=== PATIENT | female | born 1990 | race Caucasian/White ===

== ENCOUNTER 2020-06-18 11:36 | Emergency (ER) | payer OTHER ==
[2020-06-18] MEDS ORDERED: METOCLOPRAMIDE HCL INJ/PF 10 MG/2 ML SDV IV ONE (11:47)
[2020-06-18] MEDS ORDERED: DIPHENHYDRAMINE HCL 50 MG/ML VIAL IV ONE (11:48)
--- NOTE | 2020-06-18 11:49 | ER Document Report ---
ED Medical Screen (RME) - General Chief Complaint: Headache >24 hrs old Stated Complaint: HEADACHE Time Seen by Provider: 06/18/20 11:44 Notes: HPI: 30-year-old female presenting for left posterior headache progressive over 5 days not thunderclap in onset. No vision change no nausea no vomiting no fever. Did have recent illness upper respiratory type several weeks ago had a headache with that which resolved after treatment for bronchitis. Patient states she has been taking [id number] Tylenol and Advil without resolution of the headache. Patient does not have a history of chronic migraines. Patient feels like the discomfort from this headache is the worst that she has had with a headache. PHYSICAL EXAMINATION: No photophobia. Alert and oriented x3 answering all questions appropriately gait is normal. Strength and movement equal upper and lower extremities. No facial droop. No slurred speech. I have greeted and performed a rapid initial assessment of this patient. A comprehensive ED assessment and evaluation of the patient, analysis of test results and completion of medical decision making process will be conducted by an additional ED providers. Please note that clinical decision making for this patient was made during the 2019 pandemic of novel coronavirus which caused a significant strain on the healthcare system including at this particular facility. Criteria for admission discharge and level of care decisions as well as treatment decisions have necessarily changed - Related Data Allergies/Adverse Reactions: No Known Allergies Allergy (Verified 06/18/20 11:44) Past Medical History - Social History Frequency of alcohol use: None Drug Abuse: None Physical Exam - Vital signs Vitals: Temp Pulse Resp BP Pulse Ox 98.4 F 64 16 103/60 100 06/18/20 11:42 06/18/20 11:42 06/18/20 11:42 06/18/20 11:42 06/18/20 11:42 Course - Vital Signs Vital signs: Temp Pulse Resp BP Pulse Ox 98.4 F 64 16 103/60 100 06/18/20 11:42 06/18/20 11:42 06/18/20 11:42 06/18/20 11:42 06/18/20 11:42
--- NOTE | 2020-06-18 12:31 | ER Document Report ---
Entered by MANJU MORALES SCRIBE 06/18/20 1202 Acting as scribe for:SREE LOREDO MD ED Headache - General Chief Complaint: Headache >24 hrs old Stated Complaint: HEADACHE Time Seen by Provider: 06/18/20 11:44 Mode of Arrival: Ambulatory Information source: Patient Notes: This 30 year old female patient presents to the ED today with complaints of a posterior headache for the past x5 days. Patient reports associated neck pain and states that the pain is constant and worse when she lays down to go to bed or moves her neck. She has been taking Tylenol, Advil, and Ibuprofen without resolve. She states that she has never been diagnosed with migraines. She ment ions that she did have a headache a few weeks ago that resolved after she was treated for bronchitis. She tested negative for COVID at that time. Denies fever, nausea, vomiting, dizziness, vision changes, problems with equilibrium or balance, or head injury. - Related Data Allergies/Adverse Reactions: No Known Allergies Allergy (Verified 06/18/20 11:44) Past Medical History - General Information source: Patient - Social History Smoking Status: Never Smoker Cigarette use (# per day): No Chew tobacco use (# tins/day): No Smoking Education Provided: No Frequency of alcohol use: None Drug Abuse: None Family History: Reviewed & Not Pertinent Pulmonary Medical History: Reports: Hx Asthma, Hx Bronchitis Past Surgical History: Reports: None Review of Systems - Review of Systems Constitutional: See HPI, Recent illness. denies: Fever EENT: See HPI. denies: Blurred vision, Double vision Cardiovascular: See HPI. denies: Dizziness Respiratory: No symptoms reported Gastrointestinal: See HPI. denies: Nausea, Vomiting Genitourinary: No symptoms reported Female Genitourinary: No symptoms reported Musculoskeletal: See HPI, Neck pain Skin: No symptoms reported Hematologic/Lymphatic: No symptoms reported Neurological/Psychological: See HPI, Headaches -: Yes All other systems reviewed and negative Physical Exam - Vital signs Vitals: Temp Pulse Resp BP Pulse Ox 98.4 F 64 16 103/60 100 06/18/20 11:42 06/18/20 11:42 06/18/20 11:42 06/18/20 11:42 06/18/20 11:42 Interpretation: Normal - General General appearance: Alert In distress: None - HEENT Head: Normocephalic, Atraumatic Eyes: Normal Extraocular movements intact: Yes Pupils: PERRL Neck: Other - Tenderness to palpation of the bilateral cervical strap muscles at the tendon attachment of the occiput - Respiratory Respiratory status: No respiratory distress Chest status: Nontender Breath sounds: Normal Chest palpation: Normal - Cardiovascular Rhythm: Regular Heart sounds: Normal auscultation Murmur: No - Abdominal Inspection: Normal Distension: No distension Bowel sounds: Normal Tenderness: Nontender - Abdomen soft Organomegaly: No organomegaly - Back Back: Normal, Nontender - Extremities General upper extremity: Normal inspection General lower extremity: Normal inspection. No: Edema - Neurological Neuro grossly intact: Yes Orientation: AAOx4 Badger Coma Scale Eye Opening: Spontaneous Isael Coma Scale Verbal: Oriented Siael Coma Scale Motor: Obeys Commands Isael Coma Scale Total: 15 - Psychological Associated symptoms: Normal affect, Normal mood - Skin Skin Temperature: Warm Skin Moisture: Dry Skin Color: Normal Course - Re-evaluation Re-evalutation: 06/18/20 13:30 Patient resting comfortably at this time. Discussed with patient her lab results CT scan of her head results and reported that everything came back within normal range. Discussed with patient that most likely her headaches are due to stress inasmuch as he has palpable point tenderness at both insertions of the tendon of the cervical strap muscles. Patient does not have any signs of meningitis. - Vital Signs Vital signs: Temp Pulse Resp BP Pulse Ox 98.4 F 64 16 103/60 100 06/18/20 11:42 06/18/20 11:42 06/18/20 11:42 06/18/20 11:42 06/18/20 11:42 06/18/20 13:30 Vital signs stable - Laboratory Results Result Diagrams: 06/18/20 11:25 06/18/20 11:25 Laboratory Results Interpreted: 06/18/20 11:25 Sodium 136.4 L Anion Gap 3 L Laboratory results show no acute or critical findings Critical Laboratory Results Reviewed: No Critical Results - Radiology Results Radiology Results Interpreted: 06/18/20 13:31 Radiology results show no evidence for any acute findings on brain CT. Head CT 06/18/20 11:46 IMPRESSION: NO ACUTE INTRACRANIAL IMAGING FINDINGS. EVIDENCE OF ACUTE STROKE: NO. Critical Radiology Results Reviewed: No Critical Results Discharge - Discharge Clinical Impression: Tension headache Condition: Stable Disposition: HOME, SELF-CARE Additional Instructions: Headache The physician does not feel that the headache you are experiencing has a serious underlying cause. Most headaches are due to emotional stress, with resultant muscle tension (tension headache). Occasionally, headaches are secondary to changes in the blood vessels of the scalp (vascular headache and migraine headache). Sometimes, a headache is the first symptom of another developing illness, such as a viral infection. You have no evidence of stroke, bleeding, meningitis, or other serious cause of your headache. The treatment of headaches varies with the severity and cause of the pain. Not all headaches need pain shots. In fact, there is evidence that using narcotics for headaches may make them worse in the long run. The physician will determine the therapy that's in your best interest. If you develop a fever, if the headache is different from any you've previously experienced, or if the headache progressively worsens, then call your physician at once or go to the emergency room. Prescriptions: Butalb/Acetaminophen/Caffeine [Fioricet (50-325-40 mg) Tablet] 1 tab PO Q4H #20 tab Lorazepam 0.5 mg PO BID PRN 3 Days #6 tablet PRN Reason: muscle neck tension I personally performed the services described in the documentation, reviewed and edited the documentation which was dictated to the scribe in my presence, and it accurately records my words and actions.
[2020-06-18 12:48] LABS: ABSOLUTE EOSINOPHILS # (AUTO) 0.1 10^3/uL (0.0-0.6); ABSOLUTE LYMPHOCYTES (AUTO) 1.8 10^3/uL (0.5-4.7); ABSOLUTE MONOCYTES (AUTO) 0.4 10^3/uL (0.1-1.4); ABSOLUTE NEUT (AUTO) 4.1 10^3/uL (1.7-8.2); BASOPHILS % (AUTO) 0.6 % (0-2); EOSINOPHILS % (AUTO) 0.9 % (0-6); HEMATOCRIT 38.2 % (36.0-47.0); HEMOGLOBIN 12.8 g/dL (12.0-15.5); LYMPHOCYTES % (AUTO) 27.5 % (13-45); MEAN CORPUSCULAR HEMOGLOBIN 28.6 pg (27.0-33.4); MEAN CORPUSCULAR HGB CONC 33.4 g/dL (32.0-36.0); MEAN CORPUSCULAR VOLUME 86 fl (80-97); MONOCYTES % (AUTO) 6.5 % (3-13); PLATELET COUNT 247 10^3/uL (150-450); RED BLOOD COUNT 4.46 10^6/uL (3.72-5.28); RED CELL DISTRIBUTION WIDTH 12.6 % (11.5-14.0); SEGMENTED NEUTROPHILS % (AUTO) 64.5 % (42-78); TOTAL CELLS COUNTED % (AUTO) 100 %; WHITE BLOOD COUNT 6.4 10^3/uL (4.0-10.5)
--- NOTE | 2020-06-18 12:49 | RADIOLOGY REPORT (SQ) ---
EXAM DESCRIPTION: CT HEAD WITHOUT IMAGES COMPLETED DATE/TIME: 06/18/2020 11:35 am REASON FOR STUDY: headache COMPARISON: None. TECHNIQUE: Axial images acquired through the brain without intravenous contrast. Images reviewed wi th bone, brain and subdural windows. Additional sagittal and coronal reconstructions were generated. Images stored on PACS. All CT scanners at this facility use dose modulation, iterative reconstruction, and/or weight based d osing when appropriate to reduce radiation dose to as low as reasonably achievable (ALARA). [facility]: Dose Right [facility]: CareDose [facility]: Dose Right [facility]: Teradose 4D [facility]: Smart DoorDash RADIATION DOSE: CT Rad equipment meets quality standard of care and radiation dose reduction techniq ues were employed. CTDIvol: 53.2 mGy. DLP: 884 mGy-cm. mGy. LIMITATIONS: None. FINDINGS: VENTRICLES: Normal size and contour. CEREBRUM: No masses. No hemorrhage. No midline shift. No evidence for acute infarction. Normal gra y/white matter differentiation. No areas of low density in the white matter. CEREBELLUM: No masses. No hemorrhage. No alteration of density. No evidence for acute infarction. EXTRAAXIAL SPACES: No fluid collections. No masses. ORBITS AND GLOBE: No intra- or extraconal masses. Normal contour of globe without masses. CALVARIUM: No fracture. PARANASAL SINUSES: No fluid or mucosal thickening. SOFT TISSUES: No mass or hematoma. OTHER: No other significant finding. IMPRESSION: NO ACUTE INTRACRANIAL IMAGING FINDINGS. EVIDENCE OF ACUTE STROKE: NO. COMMENT: Quality ID # [id number]: Final reports with documentation of one or more dose reduction techniques (e.g., Automated exposure control, adjustment of the mA and/or kV according to patient size, use of iterative reconstruction technique) TECHNICAL DOCUMENTATION: JOB ID: [id number] [employer]- All Rights Reserved Reading location - IP/workstation name: [email or web address]
[2020-06-18 13:04] LABS: BLOOD UREA NITROGEN 13 mg/dL (7-20); CALCIUM 9.2 mg/dL (8.4-10.2); CARBON DIOXIDE 27 mmol/L (22-30); CHLORIDE 106 mmol/L (98-107); GLUCOSE 97 mg/dL (75-110); POTASSIUM 4.1 mmol/L (3.6-5.0)
[2020-06-18 13:05] LABS: ANION GAP 3 (5-19)
[2020-06-18 14:00] VITALS: BP 105/62
== END 2020-06-18 13:50 | disposition home or self-care (01) ==
LOC: ER 11:36
DX: G44.209 Tension-type headache, unspecified, not intractable (principal); M54.2 Cervicalgia
CPT/HCPCS: 99285; 96374; 96375; 36415; 85025; 80048; 70450; J1200; J2765